=== PATIENT | female | born 1965 | race Caucasian/White ===

== ENCOUNTER 2017-01-26 16:39 | Outpatient (CLI) | payer MEDICAID | END 2017-01-26 16:40 | disposition critical access hospital (66) | LOC: EMS 16:39 | PROVIDERS: ATTEND Surgery | DX: R51 Headache (principal); R41.82 Altered mental status, unspecified; R11.10 Vomiting, unspecified; R32 Unspecified urinary incontinence | CPT/HCPCS: A0425; A0429 ==

== ENCOUNTER 2017-01-26 17:07 | Emergency (ER) | payer MEDICAID ==
[2017-01-26] MEDS ORDERED: ONDANSETRON 4 MG/2 ML VIAL ONE (17:12)
[2017-01-26] MEDS ORDERED: ONDANSETRON 4 MG/2 ML VIAL IVP STA (17:13)
[2017-01-26] MEDS ORDERED: SODIUM CHLORIDE 0.9% 1,000 ML IV ONE (17:13)
[2017-01-26] MEDS ORDERED: ACETAMINOPHEN 1,000 MG/100 ML 100 ML IV STA (17:13)
[2017-01-26] MEDS ORDERED: ACETAMINOPHEN 1,000 MG/100 ML 100 ML IV ONE (17:25)
--- NOTE | 2017-01-26 17:27 | ED Physician Documentation ---
History of Present Illness - Stated complaint Stated Complaint: AMS - Chief complaint Chief Complaint: Neuro - Additonal information Additional information: hx from EMS 51 f [place] according to EMS she has a hx of migraines and went to the 1st aid tent at the fair for a migraine and refused transport, stayed in tent for 2 hr resting then developed AMS and was cold and clammy and incontinent of urine, arrives mumbling answers to question but not opening her eyes or following commands and vomiting states she also has upper back pain denies trauma Review of Systems Constitutional: reports: Sweats. denies: Fever, Chills Cardiac: denies: Chest pain / pressure Respiratory: denies: Dyspnea, Cough GI: reports: Vomiting : denies: Now EGA Musculoskeletal: reports: Back pain Neurologic: reports: Altered mental status, Headache. denies: Head injury Endocrine: denies: Easy bruising / bleeding Immunocompromised: denies: Immunocompromised PD PAST MEDICAL HISTORY - Allergies Allergies/Adverse Reactions: Allergies Allergy/AdvReac Type Severity Reaction Status Date / Time No Known Drug Allergies Allergy Verified 01/26/17 17:31 PD ED PE NORMAL - Vitals Vital signs reviewed: Yes - General General: No: Alert and oriented X 3 (not opening eyes or following commands but does answer question) - HEENT HEENT: PERRL - Neck Neck: Supple, no meningeal sign - Cardiac Cardiac: RRR - Respiratory Respiratory: No respiratory distress, Clear bilaterally - Abdomen Abdomen: Soft, Non tender - Derm Derm: Other (pale clammy) - Extremities Extremities: No deformity - Neuro Neuro: No motor deficit (moves all ext), No sensory deficit (cannot determine 2/ 2 AMS). No: Alert and oriented X 3 Results - Vitals Vitals: Vital Signs - 24 hr 01/26/17 01/26/17 01/26/17 17:08 17:15 18:08 Temperature 35.5 C L Heart Rate 74 80 Respiratory 18 16 Rate Blood Pressure 159/95 H 158/86 H O2 Saturation 98 99 01/26/17 01/26/17 01/26/17 19:02 19:12 19:47 Temperature Heart Rate 77 76 100 Respiratory 18 99 H 18 Rate Blood Pressure 142/87 H 142/87 H 157/93 H O2 Saturation 99 97 01/26/17 01/26/17 20:16 20:58 Temperature Heart Rate 90 96 Respiratory 16 16 Rate Blood Pressure 149/92 H 157/95 H O2 Saturation 97 97 Oxygen O2 Source Room air - Labs Labs: Laboratory Tests 01/26/17 01/26/17 01/26/17 17:20 18:07 18:07 WBC 16.0 H RBC 4.74 Hgb 14.3 Hct 42.9 MCV 90.5 MCH 30.2 MCHC 33.4 RDW 13.1 Plt Count 274 MPV 8.0 Neut # 14.7 H Lymph # 1.0 L Howard # 0.3 Eos # 0.0 Baso # 0.0 Absolute Nucleated RBC 0.02 Nucleated RBCs 0.1 VBG Total Hgb VBG Oxyhemoglobin VBG Carboxyhemoglobin VBG Methemoglobin Sodium 138 Potassium 3.9 Chloride 107 Carbon Dioxide 23 Anion Gap 8.0 BUN 12 Creatinine 0.5 Estimated GFR (MDRD) 131 Glucose 142 H Calcium 8.3 L Urine Opiates Screen NEGATIVE Ur Oxycodone Screen NEGATIVE Urine Methadone Screen NEGATIVE Ur Propoxyphene Screen NEGATIVE Ur Barbiturates Screen NEGATIVE Ur Tricyclics Screen NEGATIVE Ur Phencyclidine Scrn NEGATIVE Ur Amphetamine Screen NEGATIVE U Methamphetamines Scrn NEGATIVE U Benzodiazepines Scrn NEGATIVE Urine Cocaine Screen NEGATIVE U Cannabinoids Screen NEGATIVE Ethyl Alcohol < 5.0 01/26/17 18:07 WBC RBC Hgb Hct MCV MCH MCHC RDW Plt Count MPV Neut # Lymph # Howard # Eos # Baso # Absolute Nucleated RBC Nucleated RBCs VBG Total Hgb 15.2 VBG Oxyhemoglobin 97 VBG Carboxyhemoglobin 1.8 H VBG Methemoglobin 0.3 Sodium Potassium Chloride Carbon Dioxide Anion Gap BUN Creatinine Estimated GFR (MDRD) Glucose Calcium Urine Opiates Screen Ur Oxycodone Screen Urine Methadone Screen Ur Propoxyphene Screen Ur Barbiturates Screen Ur Tricyclics Screen Ur Phencyclidine Scrn Ur Amphetamine Screen U Methamphetamines Scrn U Benzodiazepines Scrn Urine Cocaine Screen U Cannabinoids Screen Ethyl Alcohol PD MEDICAL DECISION MAKING - ED course ED course: pt became more alert - she says this YODER is just like her prior migraines and that she has had incont before too she then developed CP - EKG no acute, pain resolved spont so dont think serial CE will be of use, given back pain + chest pain and AMS got a CT chest as well - had to be non con as pt did not have AC access but did not show any aortic abn WBC noted - likely 2/2 pain and stress as pt is afebrile with other signs of infection pt feeling better - feels ready to go - will dc she was "road tested" prior to dc and ambulated s problem Departure - Departure Disposition: 01 Home, Self Care Clinical Impression: Migraine Qualifiers: Migraine type: other Status migrainosus presence: without status migrainosus Intractability: not intractable Qualified Code(s): G43.809 - Other migraine, not intractable, without status migrainosus Condition: Good Instructions: ED Headache Migraine Comments: The CT scan of your head was fine. The CT scan of your chest did not show any acute problem - you do have thyroid nodules and should follow up with your PMD about that Your labs were fine except for an elevated white blood cell count which is likely due to pain and not infection Please rest for the next few days Follow up with your PMD for a recheck next week - please have your PMD recheck your blood pressure at that time too Return sooner if worse or new symptoms develop Forms: Activity restrictions Discharge Date/Time: 01/26/17 21:20
--- NOTE | 2017-01-26 18:09 | CT Preliminary Report ---
Exam: CT Head W/O IMPRESSION: No acute intracranial abnormality. [facility] SITE ID: [id number]
--- NOTE | 2017-01-26 18:11 | CT Report ---
EXAM: CT HEAD EXAM DATE: 01/26/2017 05:52 PM. CLINICAL HISTORY: Headache, altered mental status COMPARISON: 04/30/2009 CT head. TECHNIQUE: Multiaxial CT images were obtained from the foramen magnum to the vertex. IV contrast: Non e. Reformats: Coronal. In accordance with CT protocol optimization, one or more of the following dose reduction techniques w ere utilized for this exam: automated exposure control, adjustment of mA and/or KV based on patient s ize, or use of iterative reconstructive technique. FINDINGS: Parenchyma: No intraparenchymal hemorrhage. No evidence of mass, midline shift, or CT findings of inf arction. Han-white differentiation is distinct. Extraaxial Spaces: Normal for age. No subdural or epidural collections identified. Ventricles: Normal in size and position. Sinuses: Imaged paranasal sinuses, orbits, and mastoids show no significant abnormality. Bones: No evidence of fracture or calvarial defect. Other: None. IMPRESSION: No acute intracranial abnormality. [facility] Referring Provider Line: [phone] SITE ID: [id number]
[2017-01-26 18:17] LABS: BASOPHILS % (AUTO) 0.3 %; HCT - HEMATOCRIT 42.9 % (37.0-47.0); HGB - HEMOGLOBIN 14.3 g/dL (12.0-16.0); LYMPHOCYTES % (AUTO) 6.1 %; MEAN CORPUSCULAR HEMOGLOBIN 30.2 pg (27.0-31.0); MEAN CORPUSCULAR HGB CONC 33.4 g/dL (32.0-36.0); MEAN CORPUSCULAR VOLUME 90.5 fL (81.0-99.0); MONOCYTES # (AUTO) 0.3 10^3/uL (0.0-1.0); MONOCYTES % (AUTO) 1.9 %; NEUTROPHILS # (AUTO) 14.7 10^3/uL (1.5-6.6); NEUTROPHILS % (AUTO) 91.7 %; NUCLEATED RED BLOOD CELLS AUTO 0.1 /100WBC; RED BLOOD COUNT 4.74 10^6/uL (4.20-5.40); RED CELL DISTRIBUTION WIDTH 13.1 % (12.0-15.0)
[2017-01-26 18:20] LABS: METHEMOGLOBIN VENOUS 0.3 % (0-1.5)
[2017-01-26 18:26] LABS: BUN - BLOOD UREA NITROGEN 12 mg/dL (6-20); CALCIUM 8.3 mg/dL (8.5-10.3); CARBON DIOXIDE - CO2 23 mmol/L (21-32); CHLORIDE 107 mmol/L (101-111); CREATININE 0.5 mg/dL (0.4-1.0); GFR - MDRD 131 (>89); GLUCOSE 142 mg/dL (70-100); POTASSIUM 3.9 mmol/L (3.5-5.0); SODIUM 138 mmol/L (135-145)
[2017-01-26] MEDS ORDERED: KETOROLAC 60 MG/2 ML VIAL IVP STA (18:40)
--- NOTE | 2017-01-26 18:49 | XRAY Preliminary Report ---
Exam: XR Chest 2 View PA/LAT IMPRESSION: Normal 2-view chest radiography. [facility] SITE ID: [id number]
--- NOTE | 2017-01-26 18:52 | XRAY Report ---
EXAM: CHEST RADIOGRAPHY EXAM DATE: 01/26/2017 06:21 PM. CLINICAL HISTORY: Upper back pain AMS. COMPARISON: None. TECHNIQUE: 2 views. FINDINGS: Lungs/Pleura: No focal opacities evident. No pleural effusion. No pneumothorax. Normal volumes. Mediastinum: Heart and mediastinal contours are unremarkable. Other: None. IMPRESSION: Normal 2-view chest radiography. [facility] Referring Provider Line: [phone] SITE ID: [id number]
[2017-01-26] MEDS ORDERED: KETOROLAC 30 MG/ML VIAL ONE (19:07)
[2017-01-26] MEDS ORDERED: PROCHLORPERAZINE 10 MG/2 ML VIAL IVP STA (19:08)
[2017-01-26] MEDS ORDERED: diphenhydrAMINE INJ 50 MG/ML VIAL IVP STA (19:08)
[2017-01-26] MEDS ORDERED: PROCHLORPERAZINE 10 MG/2 ML VIAL ONE (19:15)
[2017-01-26] MEDS ORDERED: diphenhydrAMINE INJ 50 MG/ML VIAL ONE (19:15)
--- NOTE | 2017-01-26 20:35 | CT Preliminary Report ---
Exam: CT Chest W/O IMPRESSION: 1. Mild cardiomegaly. 2. Previous granulomatous process. 3. Multinodular thyroid. [facility] SITE ID: [id number]
--- NOTE | 2017-01-26 20:54 | CT Report ---
EXAM: CT CHEST EXAM DATE: 01/26/2017 08:13 PM. CLINICAL HISTORY: Chest and back pain. COMPARISONS: None. TECHNIQUE: Routine helical CT imaging was performed through the chest. IV contrast: None. Reconstruct ions: Coronal and sagittal. In accordance with CT protocol optimization, one or more of the following dose reduction techniques w ere utilized for this exam: automated exposure control, adjustment of mA and/or KV based on patient s ize, or use of iterative reconstructive technique. FINDINGS: Lungs/Pleura: 2 mm calcified granuloma left lung apex. No other nodules, bronchial thickening, consol idation, or edema. Pulmonary vasculature is normal. No pericardial or pleural effusion. No pneumothor ax. Mediastinum: Mild cardiomegaly without significant pericardial fluid. Multinodular normal caliber thyroid. Several tiny calcified left hilar lymph nodes. No significant adenopathy. Bones: Normal thoracic spine. Visualized Abdomen: Calcified granulomata within the spleen. Other: None. IMPRESSION: 1. Mild cardiomegaly. 2. Previous granulomatous process. 3. Multinodular thyroid. [facility] Referring Provider Line: [phone] SITE ID: [id number]
[2017-01-26 20:59] VITALS: BP 157/95
== END 2017-01-26 21:20 | disposition home or self-care (01) ==
LOC: EDUNIT# → ED 17:07
DX: G43.809 Other migraine, not intractable, without status migrainosus (principal)
CPT/HCPCS: 36415; 51702; 70450; 71020; 71250; 80048; 80306; 80320; 82375; 85025; 93005; 96374; 96375; 99284; 99285; J0131

== ENCOUNTER 2017-03-09 11:24 | Day surgery (SDC) | payer MEDICAID ==
[2017-03-09] MEDS ORDERED: LACTATED RINGERS 1,000 ML IV ONE (11:45)
[2017-03-09 12:40] LABS: HCG UR QUAL NEGATIVE
[2017-03-09] MEDS ORDERED: fentaNYL 100 MCG/2 ML VIAL IVP ONE (12:40)
[2017-03-09] MEDS ORDERED: MIDAZOLAM 2 MG/2 ML VIAL IVP ONE (12:40)
[2017-03-09 14:06] VITALS: BP 127/86
== END 2017-03-09 11:25 | disposition home or self-care (01) ==
LOC: SDS 11:24
PROVIDERS: ATTEND Surgery
PROC: 0DBP8ZX Excision of Rectum, Via Natural or Artificial Opening Endoscopic, Diagnostic (ICD-10-PCS; principal; 2017-03-09 12:30)
DX: Z12.11 Encounter for screening for malignant neoplasm of colon (principal); K57.90 Diverticulosis of intestine, part unspecified, without perforation or abscess without bleeding; K64.8 Other hemorrhoids; I34.1 Nonrheumatic mitral (valve) prolapse
CPT/HCPCS: 45380; 81025; J7120; 88305

== ENCOUNTER 2017-04-12 09:02 | Outpatient (CLI) | payer MEDICAID | END 2017-04-12 09:03 | disposition EMS.NT | LOC: EMS 09:02 | PROVIDERS: ATTEND Surgery | DX: R05 Cough (principal) ==

== ENCOUNTER 2017-07-19 08:19 | Outpatient (CLI) | payer SELFPAY | END 2017-07-19 08:20 | disposition critical access hospital (66) | LOC: EMS 08:19 | PROVIDERS: ATTEND Surgery | DX: R51 Headache (principal); R42 Dizziness and giddiness | CPT/HCPCS: A0425; A0429 ==

== ENCOUNTER 2017-07-19 08:41 | Emergency (ER) | payer SELFPAY ==
[2017-07-19] MEDS ORDERED: ONDANSETRON 4 MG/2 ML VIAL IVP STA (08:48)
[2017-07-19] MEDS ORDERED: MECLIZINE 12.5 MG TABLET PO STA (08:48)
[2017-07-19] MEDS ORDERED: SODIUM CHLORIDE 0.9% 1,000 ML IV ONE (08:48)
[2017-07-19] MEDS ORDERED: KETOROLAC 60 MG/2 ML VIAL IVP STA (08:48)
--- NOTE | 2017-07-19 08:53 | ED Physician Documentation ---
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 denies: Loss of vision Cardiac: denies: Chest pain / pressure Respiratory: denies: Dyspnea GI: denies: Abdominal Pain : denies: Now EGA (denies) Neurologic: reports: Generalized weakness (both arms feel heavu), Headache. 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 - Present Medications Home Medications: Ambulatory Orders Medication Instructions Recorded Confirmed Blood Pressure Med 07/19/17 - Allergies Allergies/Adverse Reactions: Allergies Allergy/AdvReac Type Severity Reaction Status Date / Time latex Allergy Itching Verified 07/19/17 08:52 - Social History Does the pt smoke?: No Smoking Status: Never smoker Does the pt drink ETOH?: No Does the pt have substance abuse?: No - Immunizations Immunizations are current?: Yes - POLST Patient has POLST: No PD ED PE NORMAL - Vitals Vital signs reviewed: Yes - General General: Alert and oriented X 3 - HEENT HEENT: PERRL, EOMI (globes soft no TA TTP pupils equal approx 4) - Cardiac Cardiac: RRR - Respiratory Respiratory: No respiratory distress, Clear bilaterally - Abdomen Abdomen: Soft, Non tender - Derm Derm: Normal color - Neuro Neuro: Alert and oriented X 3, ceramist 2-12 intact, No motor deficit, No sensory deficit, Normal speech Results - Vitals Vitals: Vital Signs - 24 hr 07/19/17 08:45 Temperature 35.9 C L Heart Rate 77 Respiratory 16 Rate Blood Pressure 151/96 H O2 Saturation 96 Oxygen O2 Source Room air PD MEDICAL DECISION MAKING - ED course ED course: pr felt better with IVF toradol zofran and meclizine, up and ambulating s dizziness Departure - Departure Disposition: 01 Home, Self Care Clinical Impression: Migraine Qualifiers: Migraine type: unspecified Status migrainosus presence: without status migrainosus Intractability: not intractable Qualified Code(s): G43.909 - Migraine, unspecified, not intractable, without status migrainosus Condition: Good Instructions: ED Headache Migraine Follow-Up: Juan Soriano MD [Primary Care Provider] - Comments: Please get your blood pressure rechecked when you are feeling better - it was a little high today Forms: Activity restrictions
[2017-07-19 10:08] VITALS: BP 159/92
== END 2017-07-19 10:24 | disposition home or self-care (01) ==
LOC: EDUNIT# → ED 08:41
DX: G43.909 Migraine, unspecified, not intractable, without status migrainosus (principal); I10 Essential (primary) hypertension
CPT/HCPCS: 96374; 96375; 99283; 99284; A9270

== ENCOUNTER 2020-12-24 08:00 | Outpatient (CLI) | payer OTHER ==
[2020-12-24 17:54] LABS: BASOPHILS % (AUTO) 0.6 %; EOSINOPHILS # (AUTO) 0.1 10^3/uL (0.0-0.7); EOSINOPHILS % (AUTO) 1.2 %; HCT - HEMATOCRIT 42.9 % (37.0-47.0); HGB - HEMOGLOBIN 14.8 g/dL (12.0-16.0); LYMPHOCYTES # (AUTO) 2.1 10^3/uL (1.5-3.5); LYMPHOCYTES % (AUTO) 31.5 %; MEAN CORPUSCULAR HEMOGLOBIN 31.7 pg (27.0-31.0); MEAN CORPUSCULAR HGB CONC 34.5 g/dL (32.0-36.0); MEAN CORPUSCULAR VOLUME 91.9 fL (81.0-99.0); MEAN PLATELET VOLUME 10.3 fL (7.9-10.8); MONOCYTES # (AUTO) 0.7 10^3/uL (0.0-1.0); NEUTROPHILS # (AUTO) 3.7 10^3/uL (1.5-6.6); NEUTROPHILS % (AUTO) 56.5 %; PLT - PLATELET COUNT 324 10^3/uL (130-450); RED BLOOD COUNT 4.67 10^6/uL (4.20-5.40); RED CELL DISTRIBUTION WIDTH 12.7 % (12.0-15.0); WHITE BLOOD COUNT 6.5 x10^3/uL (4.8-10.8)
[2020-12-24 18:10] LABS: ALBUMIN 4.6 g/dL (3.2-5.5); ALBUMIN/GLOBULIN RATIO 1.6 (1.0-2.2); ALKALINE PHOSPHATASE 67 IU/L (42-121); ALT ALANINE AMINOTRANSFERASE 73 IU/L (10-60); AST ASPARTATE AMINOTRANSFERASE 44 IU/L (10-42); BILIRUBIN,TOTAL 0.9 mg/dL (0.2-1.0); BUN - BLOOD UREA NITROGEN 10 mg/dL (6-20); CARBON DIOXIDE - CO2 25 mmol/L (21-32); CHLORIDE 101 mmol/L (101-111); CHOL/HDL RATIO 4.3 (<4.4); CHOLESTEROL 208 mg/dL; CREATININE 0.5 mg/dL (0.4-1.0); GFR - MDRD 129 (>89); GLUCOSE 108 mg/dL (70-100); HDL CHOLESTEROL 48 mg/dL; LDL CHOLESTEROL,CALCULATED 115 mg/dL; LDL/HDL RATIO 2.4 (<4.4); POTASSIUM 3.9 mmol/L (3.5-5.0); SODIUM 137 mmol/L (135-145); TOTAL PROTEIN 7.4 g/dL (6.7-8.2); TRIGLYCERIDES 224 mg/dL; VLDL CHOLESTEROL 45 mg/dL
[2020-12-24 18:20] LABS: THYROID STIMULATING HORMONE 1.28 uIU/mL (0.34-5.60)
[2020-12-24 19:54] LABS: ESTIMATED AVERAGE GLUCOSE 134 mg/dL (70-100); HEMOGLOBIN A1c% 6.3 % (4.27-6.07)
== END 2020-12-24 23:59 | disposition home or self-care (01) ==
LOC: LAB.WCP 08:00
PROVIDERS: ATTEND Family Medicine
DX: Z00.00 Encounter for general adult medical examination without abnormal findings (principal); R73.9 Hyperglycemia, unspecified
CPT/HCPCS: 36415; 80053; 80061; 83036; 83721; 84443; 85025

== ENCOUNTER 2021-10-14 13:52 | Outpatient (CLI) | payer OTHER ==
[2021-10-14 17:56] LABS: BASOPHILS # (AUTO) 0.1 10^3/uL (0.0-0.1); BASOPHILS % (AUTO) 0.7 %; EOSINOPHILS # (AUTO) 0.1 10^3/uL (0.0-0.7); EOSINOPHILS % (AUTO) 1.5 %; HCT - HEMATOCRIT 45.7 % (37.0-47.0); LYMPHOCYTES # (AUTO) 2.7 10^3/uL (1.5-3.5); LYMPHOCYTES % (AUTO) 36.7 %; MEAN CORPUSCULAR HEMOGLOBIN 31.3 pg (27.0-31.0); MEAN CORPUSCULAR VOLUME 89.4 fL (81.0-99.0); MEAN PLATELET VOLUME 10.6 fL (7.9-10.8); MONOCYTES # (AUTO) 0.8 10^3/uL (0.0-1.0); MONOCYTES % (AUTO) 10.1 %; NEUTROPHILS # (AUTO) 3.8 10^3/uL (1.5-6.6); NEUTROPHILS % (AUTO) 50.7 %; PLT - PLATELET COUNT 359 10^3/uL (130-450); RED BLOOD COUNT 5.11 10^6/uL (4.20-5.40); RED CELL DISTRIBUTION WIDTH 12.7 % (12.0-15.0); WHITE BLOOD COUNT 7.4 x10^3/uL (4.8-10.8)
[2021-10-14 18:04] LABS: ALBUMIN 4.5 g/dL (3.2-5.5); ALBUMIN/GLOBULIN RATIO 1.3 (1.0-2.2); ALKALINE PHOSPHATASE 68 IU/L (42-121); ALT ALANINE AMINOTRANSFERASE 39 IU/L (10-60); AST ASPARTATE AMINOTRANSFERASE 20 IU/L (10-42); BILIRUBIN,TOTAL 0.6 mg/dL (0.2-1.0); BUN - BLOOD UREA NITROGEN 15 mg/dL (6-20); CALCIUM 9.9 mg/dL (8.5-10.3); CARBON DIOXIDE - CO2 30 mmol/L (21-32); CHLORIDE 98 mmol/L (101-111); CHOLESTEROL 226 mg/dL; CREATININE 0.7 mg/dL (0.4-1.0); GFR - MDRD 87 (>89); GLUCOSE 118 mg/dL (70-100); HDL CHOLESTEROL 45 mg/dL; LDL CHOLESTEROL,CALCULATED 122 mg/dL; LDL/HDL RATIO 2.7 (<4.4); POTASSIUM 4.2 mmol/L (3.5-5.0); SODIUM 137 mmol/L (135-145); TRIGLYCERIDES 294 mg/dL; VLDL CHOLESTEROL 59 mg/dL
[2021-10-14 21:15] LABS: ESTIMATED AVERAGE GLUCOSE 128 mg/dL (70-100); HEMOGLOBIN A1c% 6.1 % (4.27-6.07)
== END 2021-10-14 13:53 | disposition home or self-care (01) ==
LOC: LAB.N 13:52
PROVIDERS: ATTEND Family Medicine
DX: I10 Essential (primary) hypertension (principal); R73.9 Hyperglycemia, unspecified
CPT/HCPCS: 36415; 80053; 80061; 83036; 83721; 85025

== ENCOUNTER 2021-11-01 15:14 | Outpatient (CLI) | payer OTHER ==
[2021-11-01 20:07] LABS: ALBUMIN 4.4 g/dL (3.2-5.5); ALBUMIN/GLOBULIN RATIO 1.4 (1.0-2.2); BILIRUBIN,TOTAL 0.6 mg/dL (0.2-1.0); CALCIUM 9.8 mg/dL (8.5-10.3); CREATININE 0.7 mg/dL (0.4-1.0); TOTAL PROTEIN 7.6 g/dL (6.7-8.2)
== END 2021-11-01 15:15 | disposition home or self-care (01) ==
LOC: LAB.N 15:14
PROVIDERS: ATTEND Physician Assistant
DX: Z51.81 Encounter for therapeutic drug level monitoring (principal)
CPT/HCPCS: 36415; 80053

== ENCOUNTER 2021-11-15 15:10 | Outpatient (CLI) | payer OTHER ==
[2021-11-15 18:14] LABS: CALCIUM 8.9 mg/dL (8.5-10.3); CREATININE 0.6 mg/dL (0.4-1.0); POTASSIUM 3.5 mmol/L (3.5-5.0)
== END 2021-11-15 15:11 | disposition home or self-care (01) ==
LOC: LAB.N 15:10
PROVIDERS: ATTEND Physician Assistant
DX: Z51.81 Encounter for therapeutic drug level monitoring (principal)
CPT/HCPCS: 36415; 80048

== ENCOUNTER 2022-04-21 07:12 | Day surgery (SDC) | payer OTHER ==
[2022-04-21] MEDS ORDERED: LACTATED RINGERS 1,000 ML IV ONE ×2 (07:29→09:20)
[2022-04-21] MEDS ORDERED: PROPOFOL 500 MG/50 ML 500 MG/50 ML VIAL ONE (08:00)
--- NOTE | 2022-04-21 08:23 | ANESTHESIA ---
Pre-Anesthesia VS, & Labs - Diagnosis hx of polyps - Procedure colonoscopy Vital Signs: Temp Pulse Resp BP Pulse Ox O2 Flow Rate 36.8 C 86 16 151/97 H 100 0 04/21/22 07:30 04/21/22 07:30 04/21/22 07:30 04/21/22 07:30 04/21/22 07:30 04/21/22 07:30 Height: 5 ft 3 in Weight (kg): 82.3 kg Body Mass Index: 32.1 BMI Classification: Obese - Is Patient ?: No Home Medications and Allergies Home Medications: Ambulatory Orders Acetaminophen [Tylenol] 650 mg PO Q6H PRN 04/20/22 Amlodipine Besylate [Norvasc] 2.5 mg PO DAILY 04/20/22 Furosemide [Lasix] 20 mg PO DAILY 04/20/22 Losartan [Cozaar] 100 mg PO DAILY 04/20/22 Potassium Chloride [Micro-K] 10 meq PO BIDWM 04/20/22 Propranolol ER [Inderal LA] 60 mg PO BID 04/20/22 Acetaminophen [Tylenol] 650 mg PO Q6H PRN 04/20/22 Amlodipine Besylate [Norvasc] 2.5 mg PO DAILY 04/20/22 Furosemide [Lasix] 20 mg PO DAILY 04/20/22 Losartan [Cozaar] 100 mg PO DAILY 04/20/22 Potassium Chloride [Micro-K] 10 meq PO BIDWM 04/20/22 Propranolol ER [Inderal LA] 60 mg PO BID 04/20/22 Allergies/Adverse Reactions: Allergies Allergy/AdvReac Type Severity Reaction Status Date / Time latex Allergy Itching Verified 04/21/22 07:45 Anes History & Medical History - Anesthetic History Anesthesia Complications: reports: No previous complications Family history of Anesthesia Complications: Denies Family history of Malignant Hyperthermia: Denies - Medical History Cardiovascular: reports: Hypertension, High cholesterol, Valve disorder, Other Pulmonary: reports: Shortness of breath Gastrointestinal: reports: Colon polyps Urinary: reports: None Musculoskeletal: reports: None Endocrine/Autoimmune: reports: None Skin: reports: Rosacea Smoking Status: Never smoker - Surgical History General: reports: Colonoscopy Gynecologic: reports: Breast reduction Exam General: Alert, Oriented x3, Cooperative Dental: WNL Mouth Openin Fingerbreadth Neck Mobility: Normal Mallampati classification: II Thyromental Distance: 4-6 cm Respiratory: Lungs clear Cardiovascular: Regular rate Plan Anesthesia Type: Total IV Consent for Procedure(s) Verified and Reviewed: Yes Code Status: Attempt Resuscitation ASA classification: 3-Severe systemic disease Is this case an emergency?: No
--- NOTE | 2022-04-21 08:43 | HISTORY & PHYSICAL EXAMINATION ---
Chief Complaint - Chief Complaint Chief Complaint: here for colon cancer screening History of Present Illness - History Obtained From Records Reviewed: yes History obtained from: pt Exam Limitations: none - History of Present Illness HPI Comment/Other: hx colon polyps. 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 - POLST Patient has POLST: No Meds/Allgy - Home Medications Home Medications: Ambulatory Orders Medication Instructions Recorded Confirmed Acetaminophen [Tylenol] 650 mg PO Q6H PRN 04/20/22 04/21/22 Amlodipine Besylate [Norvasc] 2.5 mg PO DAILY 04/20/22 04/21/22 Furosemide [Lasix] 20 mg PO DAILY 04/20/22 04/21/22 Losartan [Cozaar] 100 mg PO DAILY 04/20/22 04/21/22 Potassium Chloride [Micro-K] 10 meq PO BIDWM 04/20/22 04/21/22 Propranolol ER [Inderal LA] 60 mg PO BID 04/20/22 04/21/22 - Allergies Allergies/Adverse Reactions: Allergies Allergy/AdvReac Type Severity Reaction Status Date / Time latex Allergy Itching Verified 04/21/22 07:45 Review of Systems - Other Findings Other Findings: 10 pt ros as above otherwise unremarkable Exam - Vital Signs Vital Signs: Vital Signs x48h Temp Pulse Resp BP Pulse Ox O2 Flow Rate 04/21/22 07:30 36.8 C 86 16 151/97 H 100 0 - Physical Exam General Appearance: positive: No acute distress, Alert Eyes Bilateral: positive: PERRL, EOMI ENT: positive: No signs of dehydration Neck: positive: No JVD Respiratory: positive: No respiratory distress, Breath sounds nml Cardiovascular: positive: Regular rate & rhythm Abdomen: positive: Non-tender, No distention Neurologic/Psychiatric: positive: Oriented x3 Conclusion/Plan - Problem List (1) History of adenomatous polyp of colon Conclusion/Plan: plan colonoscopy. parq held and consent obtained
[2022-04-21] MEDS ORDERED: MIDAZOLAM 2 MG/2 ML VIAL ONE (08:45)
[2022-04-21 09:49] VITALS: BP 130/87
--- NOTE | 2022-04-21 15:35 | ANESTHESIA POST OP EVALUATION ---
Anesthesia Post Eval - Post Anesthesia Eval Vitals: Last Vital Signs Temp 36.6 C 04/21/22 09:20 Pulse 70 04/21/22 09:48 Resp 19 04/21/22 09:48 BP 130/87 H 04/21/22 09:48 Pulse Ox 99 04/21/22 09:48 O2 Flow Rate 0 04/21/22 07:30 CV Function Including HR & BP: Stable Pain Control: Satisfactory Nausea & Vomiting: Negative Mental Status: Baseline Respiratory Status: Airway Patent Hydration Status: Satisfactory Anesthesia Complications: None
== END 2022-04-21 07:13 | disposition home or self-care (01) ==
LOC: SDS 07:12
PROVIDERS: ATTEND Surgery
DX: Z86.010 Personal history of colon polyps (principal); K57.30 Diverticulosis of large intestine without perforation or abscess without bleeding; I10 Essential (primary) hypertension; E66.9 Obesity, unspecified; F41.9 Anxiety disorder, unspecified; Z68.32 Body mass index [BMI] 32.0-32.9, adult
CPT/HCPCS: 45378; J7120

== ENCOUNTER 2022-06-15 08:19 | Outpatient (CLI) | payer OTHER ==
--- NOTE | 2022-06-16 09:48 | Mammography Report ---
BILATERAL DIGITAL SCREENING MAMMOGRAM 3D/2D: 06/15/2022 CLINICAL: Routine screening. Comparison is made to exams dated: 09/14/2010 mammogram and 03/23/2009 mammogram - [facility]. Both breasts are almost entirely fatty (category a/<25% glandular tissue). No significant masses, calcifications, or other findings are seen in either breast. There has been no significant interval change. IMPRESSION: NEGATIVE There is no mammographic evidence of malignancy. A 1 year screening mammogram is recommended. Based on the Tyrer Cuzick model (a risk assessment model) the patients lifetime risk is 6.8% and her 10 year risk is 2.0%. According to the ACR, ACS, and NCCN guidelines, an annual breast MRI exam roman g with mammogram is recommended if the patients lifetime risk is 20% or greater. This exam was interpreted at Station ID: [id number]. NOTE: For mammograms, a report in lay terms will be sent to the patient. Approximately 15% of breast malignancies will not be visualized mammographically. In the management of a palpable breast mass, a negative mammogram must not discourage biopsy of a clinically suspicious lesion. Electronically Signed By: Izzy hardin/penrad:06/15/2022 12:38:03 ACR BI-RADS Category 1: Negative 3341F PARENCHYMAL PATTERN: (F) - The breast(s) demonstrate(s) diffuse fatty replacement. BI-RADS CATEGORY: (1) - 1 RECOMMENDATION: (ANNUAL) - Recommend routine annual screening mammography. [id number] 1 year screening LATERALITY: (B)
== END 2022-06-15 08:20 | disposition home or self-care (01) ==
LOC: DI.N 08:19
DX: Z12.31 Encounter for screening mammogram for malignant neoplasm of breast (principal)

== ENCOUNTER 2023-07-21 08:00 | Outpatient (CLI) | payer OTHER ==
[2023-07-21 20:27] LABS: INFLUENZA A- RESP PCR PANEL NOT DETECTED; INFLUENZA B - RESP PCR PANEL NOT DETECTED; RSV- RESP PCR PANEL NOT DETECTED; SARS-CoV-2 -RESP PCR PANEL NOT DETECTED
== END 2023-07-21 23:59 | disposition home or self-care (01) ==
LOC: LAB.N 08:00
PROVIDERS: ATTEND Physician Assistant
DX: M79.10 Myalgia, unspecified site (principal)
CPT/HCPCS: 87637

== ENCOUNTER 2023-07-21 14:08 | Outpatient (CLI) | payer OTHER ==
[2023-07-21 14:33] LABS: BASOPHILS % (AUTO) 0.4 %; EOSINOPHILS # (AUTO) 0.1 10^3/uL (0.0-0.7); EOSINOPHILS % (AUTO) 1.4 %; HCT - HEMATOCRIT 44.2 % (37.0-47.0); HGB - HEMOGLOBIN 15.2 g/dL (12.0-16.0); LYMPHOCYTES # (AUTO) 2.4 10^3/uL (1.5-3.5); LYMPHOCYTES % (AUTO) 34.9 %; MEAN CORPUSCULAR HEMOGLOBIN 31.3 pg (27.0-31.0); MEAN CORPUSCULAR HGB CONC 34.4 g/dL (32.0-36.0); MEAN CORPUSCULAR VOLUME 91.1 fL (81.0-99.0); MEAN PLATELET VOLUME 9.1 fL (7.9-10.8); MONOCYTES # (AUTO) 0.7 10^3/uL (0.0-1.0); MONOCYTES % (AUTO) 9.4 %; NEUTROPHILS # (AUTO) 3.8 10^3/uL (1.5-6.6); NEUTROPHILS % (AUTO) 53.8 %; PLT - PLATELET COUNT 309 10^3/uL (130-450); RED BLOOD COUNT 4.85 10^6/uL (4.20-5.40); RED CELL DISTRIBUTION WIDTH 12.6 % (12.0-15.0)
--- NOTE | 2023-07-21 15:11 | XRAY Report ---
PROCEDURE: Chest 2V INDICATIONS: DYSPNEA ON EXERTION TECHNIQUE: 2 views of the chest were acquired. COMPARISON: Chest x-ray 01/26/2017. FINDINGS: Surgical changes and devices: None. Lungs and pleura: No pleural effusions or pneumothorax. Lungs are clear. Mediastinum: Mediastinal contours appear normal. Heart size is normal. Bones and chest wall: No suspicious bony lesions. Overlying soft tissues appear unremarkable. IMPRESSION: No acute cardiopulmonary process. Reviewed by: Stephan Collins MD on 07/21/2023 3:09 PM PST Approved by: Stephan Collins MD on 07/21/2023 3:09 PM [facility] Station ID: [id number]
[2023-07-21 15:15] LABS: TROPONIN I HIGH SENSITIVITY 2.3 ng/L (2.3-14.8)
[2023-07-21 15:16] LABS: GLUCOSE, URINE (UA) NEGATIVE (NEGATIVE); KETONES,URINE (UA) NEGATIVE (NEGATIVE); LEUKOCYTE ESTERASE, URINE NEGATIVE (NEGATIVE); NITRITE,URINE NEGATIVE (NEGATIVE); OCCULT BLOOD,URINE SMALL (NEGATIVE); PH,URINE 6.5 PH (5.0-7.5); PROTEIN,URINE TRACE mg/dL (NEGATIVE); UROBILINOGEN,URINE 0.2 (NORMAL) E.U./dL (NORMAL)
[2023-07-21 15:26] LABS: BACTERIA,URINE Moderate /HPF (None Seen); BILIRUBIN,URINE NEGATIVE (NEGATIVE); CLARITY,URINE CLEAR (CLEAR); SQUAMOUS EPITHELIAL CELL,UR FEW Squamous (<= Few); WBC,URINE 0-3 /HPF (0-5)
[2023-07-21 15:43] LABS: ALBUMIN 4.5 g/dL (3.2-5.5); ALBUMIN/GLOBULIN RATIO 1.5 (1.0-2.2); BILIRUBIN,TOTAL 0.5 mg/dL (0.2-1.0); CREATININE 0.7 mg/dL (0.6-1.3); POTASSIUM 3.7 mmol/L (3.5-4.5); TOTAL PROTEIN 7.5 g/dL (6.4-8.9)
== END 2023-07-21 14:09 | disposition home or self-care (01) ==
LOC: LAB 14:08
PROVIDERS: ATTEND Physician Assistant
DX: R07.89 Other chest pain (principal); R35.0 Frequency of micturition; R06.09 Other forms of dyspnea
CPT/HCPCS: 36415; 80053; 81001; 83880; 84484; 85025; 87086

== ENCOUNTER 2023-10-25 07:25 | Outpatient (CLI) | payer OTHER ==
[2023-10-25 12:20] LABS: ALBUMIN 4.5 g/dL (3.2-5.5); ALBUMIN/GLOBULIN RATIO 1.5 (1.0-2.2); ALKALINE PHOSPHATASE 72 IU/L (42-121); ALT ALANINE AMINOTRANSFERASE 52 IU/L (10-60); AST ASPARTATE AMINOTRANSFERASE 23 IU/L (10-42); BILIRUBIN,TOTAL 0.7 mg/dL (0.2-1.0); BUN - BLOOD UREA NITROGEN 13 mg/dL (6-20); CALCIUM 9.9 mg/dL (8.5-10.3); CARBON DIOXIDE - CO2 30 mmol/L (21-32); CHLORIDE 102 mmol/L (101-111); CHOL/HDL RATIO 4.5 (<4.4); CHOLESTEROL 215 mg/dL; CREATININE 0.6 mg/dL (0.6-1.3); GFR - MDRD 103 (>89); GLUCOSE 158 mg/dL (74-104); HDL CHOLESTEROL 48 mg/dL; LDL CHOLESTEROL,CALCULATED 121 mg/dL; LDL/HDL RATIO 2.5 (<4.4); POTASSIUM 4.3 mmol/L (3.5-4.5); SODIUM 137 mmol/L (135-145); TOTAL PROTEIN 7.5 g/dL (6.4-8.9); TRIGLYCERIDES 230 mg/dL (48-352); VLDL CHOLESTEROL 46 mg/dL
[2023-10-25 12:22] LABS: MICROALBUM/CREATININE RATIO,UR 143.3 ug/mg (<30.0); MICROALBUMIN,URINE 12.9 mg/dL
[2023-10-25 14:21] LABS: ESTIMATED AVERAGE GLUCOSE 137 mg/dL (70-100); HEMOGLOBIN A1c% 6.4 % (4.27-6.07)
== END 2023-10-25 07:26 | disposition home or self-care (01) ==
LOC: LAB.N 07:25
PROVIDERS: ATTEND Physician Assistant
DX: E11.65 Type 2 diabetes mellitus with hyperglycemia (principal)
CPT/HCPCS: 36415; 80053; 80061; 82043; 82570; 83036; 83721